=== PATIENT | male | born 1985 | race Caucasian/White ===

== ENCOUNTER → 2016-11-20 | Outpatient (CLI) | payer OTHER ==
--- NOTE | 2016-11-20 18:52 | CONS ---
DATE: 11/20/2016 CONSULTATION/NEW PATIENT EVALUATION HISTORY OF PRESENT ILLNESS/SLEEP-WAKE EVALUATION: A 31-year-old gentleman who has been evaluated in the sleep center for significant excessive daytime sleepiness. SLEEP SCHEDULE: Patient's usual sleep schedule from midnight until 7:00 a.m., on weekends from midnight until 7:30 a.m. FALLING ASLEEP: No problem with falling asleep at all. No TV in bedroom. DURING SLEEP: He usually sleeps on the side position. Without history of significant snoring. No history of hypnagogic hallucinations, cataplexy or sleep paralysis. Sometimes positive episodes of jerking movements. DURING THE DAY/WAKE STATE: During the day, patient sometimes feels extremely sleepy. Shoup Sleepiness Scale is significantly increased to 15. Sometimes he has episodes of sleepiness which he has difficulties to tolerate and may fall asleep in any situation. Shoup Sleepiness Scale is increased to 15. PAST MEDICAL HISTORY: Basically negative. PAST SURGICAL HISTORY: Surgery on right femur, krys insertion for fracture in 2001. MEDICATIONS: None. SOCIAL HISTORY: Negative for smoking or using alcohol. REVIEW OF SYSTEMS: Sleepiness during the day. FAMILY HISTORY: Breast cancer. PHYSICAL EXAMINATION: GENERAL: gentleman without any distress. VITAL SIGNS: BP 115/62, HR 76, RR 16. Height 6 feet 1-1/2 inches, weight 238, BMI 30.9. Neck 17 inches in circumference. Temperature 97.7. HEENT: PERRLA, EOMI. Evaluation of oropharynx showed tongue protrudes midline. Position of soft palate close to normal. Slight restriction of nasal breathing. NECK: Supple. No JVD. Thyroid is not palpable. LUNGS: Clear to percussion and to auscultation. Good air exchange. No wheezing or rhonchi. HEART: S1, S2 regular. No murmurs, gallops or rubs. ABDOMEN: Soft and nontender, slightly obese. Bowel sounds are present. No organomegaly appreciated. EXTREMITIES: No clubbing or cyanosis. HOST COORDINATOR: Awake, alert, and oriented x3. Cranial nerves 2 to 7 intact. There is no fasciculation or atrophy noted. No focal deficits observed. IMPRESSION: 1. Significant excessive daytime sleepiness. Shoup Sleepiness Scale increased to 15, but very easily could fall asleep anytime. Some restriction of sleep schedule. Differential diagnoses include hypersomnia. 2. Rule out obstructive sleep apnea. 3. Obesity. 4. Status post right femur fracture in 2001. 5. History of some jerking movements during sleep. Differential diagnoses include periodic limb movements. PLAN: 1. Increase time in bed to 7-1/2 to 8 hours every night for 6 weeks. 2. If patient continues to feel sleepy during the day, will proceed with polysomnogram for evaluation of the patient's breathing during sleep. If it is negative, will follow up with multiple sleep latency tests for objective evaluation of his sleepiness during the day. 3. No driving if feeling any sleepiness. 4. Losing weight. Thank you very much for referring this patient for consultation. Sincerely, Neymar Leon MD, PhD, FAASM. Diplomat of [employer] [place] [employer], Sleep Medicine Board by [employer] [place] [employer] Senior [employer] of [facility] [place]
== END | disposition home or self-care (01) ==
CPT/HCPCS: 99211

== ENCOUNTER → 2017-04-28 | Outpatient (CLI) | payer BC | END | disposition home or self-care (01) | LOC: LABWHC1 11:18 | PROVIDERS: ATTEND Internal Medicine Cardiovascular Disease | DX: R07.9 Chest pain, unspecified (principal); R06.02 Shortness of breath | CPT/HCPCS: 36415; 85379 ==

== ENCOUNTER 2017-04-29 12:19 | Inpatient (IN) | payer BC ==
--- NOTE | 2017-04-29 13:40 | ED ---
General Adult HPI - General Chief complaint: Allergic Reaction Stated complaint: Numb hands, swelling Time Seen by Provider: 04/29/17 12:30 Source: patient, RN notes reviewed Mode of arrival: ambulatory Limitations: no limitations - History of Present Illness Initial comments: This is a 31-year-old male who presents emergency Department complaining of bilateral hand pain and hand swelling. Patient also complains of facial numbness around his lips he states this morning he was drooling out of the right side of his mouth. Patient states this all started at about 5:45 his morning he woke up with severe hand pain bilaterally. Patient states she has not done any recent physical activity where he might hurt his hand. Patient states he can't even pinch anything to pick it up. Patient states both hands are equally sore and now his feet are starting to ache him a little as well as his knees. Patient denies any fever chills per patient denies any exposure to ticks. Patient states he was at an ER on Thursday because he was having chest pain or difficulty breathing but those symptoms have since resolved and he is not taking any new medicines. Patient denies any headache. Patient denies any lightheadedness dizziness. Patient denies any abdominal pain patient denies nausea vomiting or diarrhea. Patient states his hands are so swollen as well he can get his ring off. Patient states one of the problems with getting his ring off is that he can't apply the pressure with one hand because his fingers aren't strong enough. - Related Data Home Medications Medication Instructions Recorded Confirmed Aspirin 650 mg PO ONCE PRN 04/29/17 04/29/17 Cetirizine HCl [Zyrtec] 10 mg PO DAILY 04/29/17 04/29/17 diphenhydrAMINE HCL [Benadryl] 50 mg PO ONCE PRN 04/29/17 04/29/17 Allergies Allergy/AdvReac Type Severity Reaction Status Date / Time warfarin [From Coumadin] Allergy Unknown Verified 04/29/17 13:16 Childhood Review of Systems ROS Statement: Those systems with pertinent positive or pertinent negative responses have been documented in the HPI. ROS Other: All systems not noted in ROS Statement are negative. Past Medical History Past Medical History: No Reported History History of Any Multi-Drug Resistant Organisms: None Reported Additional Past Surgical History / Comment(s): r femur Past Psychological History: No Psychological Hx Reported Smoking Status: Never smoker Past Alcohol Use History: None Reported Past Drug Use History: None Reported General Exam - General Exam Comments Initial Comments: GENERAL: Patient is well-developed and well-nourished. Patient is nontoxic and well- hydrated and is in mild distress. ENT: Neck is soft and supple. No significant lymphadenopathy is noted. Oropharynx is clear. Moist mucous membranes. Neck has full range of motion without eliciting any pain. EYES: The sclera were anicteric and conjunctiva were pink and moist. Extraocular movements were intact and pupils were equal round and reactive to light. Eyelids were unremarkable. PULMONARY: Unlabored respirations. Good breath sounds bilaterally. No audible rales rhonchi or wheezing was noted. CARDIOVASCULAR: There is a regular rate and rhythm without any murmurs gallops or rubs. ABDOMEN: Soft and nontender with normal bowel sounds. SKIN: Skin is clear with no lesions or rashes and otherwise unremarkable. NEUROLOGIC: Patient is alert and oriented x3. Cranial nerves II through XII are grossly intact. Motor and sensory are also intact. Normal speech, volume and content. Symmetrical smile. I do not appreciate any objective findings of numbness but he states that his face is tingly but not numb. MUSCULOSKELETAL: She has significantly weak technical solutions engineer bilaterally. Patient's hand appear to be a little swollen his ring is unable to be removed. All other joints have full range of motion. LYMPHATICS: No significant lymphadenopathy is noted PSYCHIATRIC: Normal psychiatric evaluation. Normal interpersonal interactions appears functionally intact in deals appropriately with others. No signs of depression. No signs of anxiety. Limitations: no limitations Course Vital Signs 04/29/17 04/29/17 12:29 15:13 Temperature 97.8 F Pulse Rate 86 87 Respiratory 18 18 Rate Blood Pressure 137/79 139/75 O2 Sat by Pulse 95 97 Oximetry Medical Decision Making - Medical Decision Making I reviewed the patient's workup from [facility]. Patient's symptoms seemed to progress while in the hospital. Patient started getting small bumps on the dorsal aspect of the fingers which were also a little bit tender. He also noted that swallowing started to hurt though he could do it it was painful to do. - Lab Data Result diagrams: 04/29/17 13:55 04/29/17 13:55 Lab Results 04/29/17 04/29/17 Range/Units 13:55 13:55 WBC 10.8 H (3.8-10.6) k/uL RBC 5.33 (4.30-5.90) m/uL Hgb 15.8 (13.0-17.5) gm/dL Hct 47.2 (39.0-53.0) % MCV 88.6 (80.0-100.0) fL MCH 29.7 (25.0-35.0) pg MCHC 33.5 (31.0-37.0) g/dL RDW 13.6 (11.5-15.5) % Plt Count 250 (150-450) k/uL Neutrophils % 66 % Lymphocytes % 22 % Monocytes % 6 % Eosinophils % 5 % Basophils % 1 % Neutrophils # 7.1 (1.3-7.7) k/uL Lymphocytes # 2.4 (1.0-4.8) k/uL Monocytes # 0.6 (0-1.0) k/uL Eosinophils # 0.5 (0-0.7) k/uL Basophils # 0.1 (0-0.2) k/uL Sodium 141 (137-145) mmol/L Potassium 4.0 (3.5-5.1) mmol/L Chloride 105 (98-107) mmol/L Carbon Dioxide 24 (22-30) mmol/L Anion Gap 12 mmol/L BUN 26 H (9-20) mg/dL Creatinine 1.00 (0.66-1.25) mg/dL Est GFR (MDRD) Af Amer >60 (>60 ml/min/1.73 sqM) Est GFR (MDRD) Non-Af >60 (>60 ml/min/1.73 sqM) Glucose 83 (74-99) mg/dL Calcium 9.3 (8.4-10.2) mg/dL Magnesium 2.1 (1.6-2.3) mg/dL Total Bilirubin 0.6 (0.2-1.3) mg/dL AST 33 (17-59) U/L ALT 60 (21-72) U/L Alkaline Phosphatase 78 (38-126) U/L C-Reactive Protein 16.2 H (<10.0) mg/L Total Protein 7.0 (6.3-8.2) g/dL Albumin 4.3 (3.5-5.0) g/dL Rheumatoid Factor <9 (<12) IU/mL Disposition Clinical Impression: Inflammatory arthropathy, TIA (transient ischemic attack) Disposition: ADMITTED IP TO THIS HOSP Referrals: Mary Martinez MD [Primary Care Provider] - 1-2 days Time of Disposition: 15:42
--- NOTE | 2017-04-29 14:14 | CT ---
EXAMINATION TYPE: CT brain wo con DATE OF EXAM: 04/29/2017 COMPARISON: NONE HISTORY: Bilateral hand numbness and swelling, Rt facial droop CT DLP: 1135 mGycm. Automated Exposure Control for Dose Reduction was Utilized. TECHNIQUE: CT scan of the head is performed without contrast. FINDINGS: There is no acute intracranial hemorrhage, mass effect, or midline shift identified. The ventricles and sulci are within normal limits in size. There is near complete opacification of bilat eral ethmoid and left frontal sinus. There is moderate dependent opacification right frontal sinus an d left sphenoid sinus. There is moderate mucosal thickening right sphenoid sinus. There is mild to mo derate mucosal thickening visualized portion of bilateral maxillary sinuses IMPRESSION: No acute intracranial hemorrhage or midline shift is seen. Acute on chronic paranasal pa nsinusitis suspected. Clinical correlation advised.
[2017-04-29 14:22] LABS: Basophils # (A) 0.1 k/uL (0-0.2); Basophils % (A) 1 %; CH 30.7; CHCM 34.8; Eosinophils # (A) 0.5 k/uL (0-0.7); Eosinophils % (A) 5 %; HCT 47.2 % (39.0-53.0); HDW 2.71; HGB 15.8 gm/dL (13.0-17.5); Luc % (Auto) 1; Lymphocytes # (A) 2.4 k/uL (1.0-4.8); Lymphocytes % (A) 22 %; MCH 29.7 pg (25.0-35.0); MCHC 33.5 g/dL (31.0-37.0); MCV 88.6 fL (80.0-100.0); Mean Platelet Volume 9.3; Monocytes # (A) 0.6 k/uL (0-1.0); Monocytes % (A) 6 %; Neutrophils # (A) 7.1 k/uL (1.3-7.7); Neutrophils % (A) 66 %; RBC 5.33 m/uL (4.30-5.90); RDW 13.6 % (11.5-15.5); WBC 10.8 k/uL (3.8-10.6)
[2017-04-29 14:32] LABS: Anion Gap 12 mmol/L; C Reactive Protein 16.2 mg/L (<10.0); Calcium 9.3 mg/dL (8.4-10.2); Carbon Dioxide 24 mmol/L (22-30); Chloride 105 mmol/L (98-107); Glucose 83 mg/dL (74-99); Non-African American GFR(MDRD) >60 (>60 ml/min/1.73 sqM); Sodium 141 mmol/L (137-145); Total Bilirubin 0.6 mg/dL (0.2-1.3)
[2017-04-29 14:33] LABS: Rheumatoid Factor, Qnt <9 IU/mL (<12)
[2017-04-29 14:43] LABS: Blood Urea Nitrogen 26 mg/dL (9-20); Magnesium 2.1 mg/dL (1.6-2.3)
[2017-04-29 14:44] LABS: ALT 60 U/L (21-72); AST 33 U/L (17-59); Alkaline Phosphatase 78 U/L (38-126)
[2017-04-29 16:24] LABS: Creatine Kinase 84 U/L (55-170)
--- NOTE | 2017-04-29 16:24 | US ---
EXAMINATION TYPE: US carotid duplex BILAT DATE OF EXAM: 04/29/2017 COMPARISON: NONE CLINICAL HISTORY: Stenosis. Numbness and edema bilateral hands. Dizziness. Right facial droop EXAM MEASUREMENTS: RIGHT: Peak Systolic Velocity (PSV) cm/sec ----- Right CCA: 109.7 ----- Right ICA: 95.1 ----- Right ECA: 111.3 ICA/CCA ratio: 0.9 RIGHT: End Diastole cm/sec ----- Right CCA: 19.2 ----- Right ICA: 22.5 ----- Right ECA: 7.9 LEFT: Peak Systolic Velocity (PSV) cm/sec ----- Left CCA: 101.6 ----- Left ICA: 77.5 ----- Left ECA: 108.1 ICA/CCA ratio: 0.8 LEFT: End Diastole cm/sec ----- Left CCA: 20.8 ----- Left ICA: 32.2 ----- Left ECA: 12.8 VERTEBRALS (direction of flow): Right Vertebral: Antegrade Left Vertebral: Antegrade Minimal plaque noted bilateral bifurcations. No increased velocities. No evidence of significant sten osis IMPRESSION: 1. Atheromatous plaquing without significant flow-limiting stenosis. Criteria for Assigning % of Stenosis / Diameter reduction (Estimation based on the indirect measurements of the internal carotid artery velocities (ICA PSV). 1. Normal (no stenosis)=ICA PSV < 125 cm/s: ratio < 2.0: ICA EDV<40 cm/s. 2. Less than 50% stenosis=ICA PSV < 125 cm/s: ratio < 2.0: ICA EDV<40 cm/s. 3. 50 to 69% stenosis=ICA PSV of 125 to 230 cm/s: ration 2.0 ? 4.0: ICA EDV 40-100 cm/s. 4. Greater than 70% stenosis to near occlusion= ICA PSV > 230 cm/s: ratio > 4.0: ICA EDV > 100 cm/s. 5. Near occlusion= ICA PSV velocities may be low or undetectable: variable ratio and ICA EDV. 6. Total occlusion=unable to detect flow.
[2017-04-29 16:36] LABS: Creatine Kinase MB 1.3 ng/mL (0.0-2.4); Troponin I <0.012 ng/mL (0.000-0.034)
[2017-04-29] MEDS ORDERED: KETOROLAC 30 MG/ML 1 ML VIAL IVP STA (17:12)
[2017-04-29] MEDS ORDERED: MORPHINE SULFATE 2 MG/ML SYRINGE IVP PRN (17:12)
[2017-04-29] MEDS ORDERED: ACETAMINOPHEN TAB 325 MG TAB PO STA (17:29)
[2017-04-29 18:31] VITALS: BMI 30.2
[2017-04-29] MEDS ORDERED: methylPREDNISolone SOD SUCCI 125 MG/2 ML VIAL IV STA (18:58)
[2017-04-29] MEDS ORDERED: traMADol 50 MG TAB PO PRN (18:59)
[2017-04-29] MEDS ORDERED: DOCUSATE 100 MG CAP PO PRN (22:02)
[2017-04-29] MEDS: methylPREDNISolone SOD SUCCI 125 MG/2 ML VIAL IV SCH (23:28)
[2017-04-30] MEDS: methylPREDNISolone SOD SUCCI 125 MG/2 ML VIAL IV SCH ×2 (05:06→11:24)
[2017-04-30 07:35] LABS: Cholesterol 181 mg/dL (<200); HDL Cholesterol 60 mg/dL (40-60); Triglycerides 75 mg/dL (<150)
--- NOTE | 2017-04-30 11:00 | CONS ---
DATE OF CONSULTATION: 04/29/2017 CHIEF COMPLAINT: Numbness. HISTORY OF PRESENT ILLNESS: The patient is a pleasant 31-year-old male who is being evaluated by the Neurology Service today on 04/29/2017 per the request of Dr. Valle for some facial numbness. The patient states that he woke up this morning and felt numbness around his lips along with some swelling. He also noticed significant swelling in his hands. The swelling in the hands was kind of painful to the point where he could not make a fist. He denies any previous symptoms similar to this. He denies starting any new medications, except some [id number] Benadryl. He states that he has recently been having seasonal allergies and he has been taking Benadryl and Zyrtec. He does report having occasional joint pain. A CT scan of the brain was done in the emergency room which was normal. A carotid Doppler was done, which showed no hemodynamically significant stenosis. His comprehensive metabolic profile was normal and his CBC was normal except for minimal leukocytosis at 10.8. His C-reactive protein was slightly elevated at 16.2. At the time of my evaluation, the patient is sitting up in his bed and appears to be in no acute distress. He denies any changes in his symptoms involving his lips and his hands since his admission. He does inform me that he did have a recent trip to the Emergency Room a few days ago because he was having chest pains that radiated into his left arm. He states he had a cardiac work-up in the emergency room and this was negative. PAST MEDICAL HISTORY: Seasonal allergies and history of orthopedic surgery. SOCIAL HISTORY: He denies any tobacco, alcohol or drug use. FAMILY HISTORY: Noncontributory. HOME MEDICATIONS: Reviewed in the chart. ALLERGIES: COUMADIN. REVIEW OF SYSTEMS: As mentioned above and otherwise negative. PHYSICAL EXAM: Vital signs show a temperature of 99.9, pulse 85, respirations 18, blood pressure 133/69. GENERAL APPEARANCE: The patient is a well-developed male who appears to be in no acute distress. HEENT: Normocephalic, atraumatic, no facial asymmetry is seen. Extraocular muscles are intact. Neck is supple with no masses felt. CARDIOVASCULAR: Regular rate and rhythm. ABDOMEN: Nontender, nondistended. Extremities showed nonpitting edema in both hands. No clubbing was seen. NEUROLOGICAL EXAM: The patient is alert, aware, and oriented x3. Speech and language are normal. 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 Sensory exam was normal to light touch in all 4 extremities. No pronator drift is seen. No facial asymmetry or sensory deficit is noticed on cranial nerve testing although he does feel that his lips are numb involving the right and the left side. IMPRESSION: 1. Numbness. 2. Extremity swelling. 3. 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 RECOMMENDATION: The patient's numbness is involving his lips and he does have some swelling there as well. Symptoms are not consistent with any ischemic etiology. 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 I do recommend a rheumatological work-up. He could also be having medication adverse effect, which should be considered as well. No further inpatient neurological work-up is needed at this time. I reviewed with the patient the results of his CT scan of the brain and a carotid Doppler. I will continue to follow with you as needed. Thank you for allowing me to participate in the care of your patient. If you have any questions, please feel free to contact me.
[2017-04-30 13:22] VITALS: BP 120/67; PULSE 92; RESP 18; TEMP 97.8
--- NOTE | 2017-04-30 19:09 | HP ---
H&P AND DISCHARGE SUMMARY DATE OF ADMISSION: Patient is a very pleasant 31-year-old gentleman without any significant major medical problems and without any significant history of premature coronary artery disease in the family. He came in with complaints of facial swelling and facial numbness ( ) bilateral hand swelling and throat swelling; mostly looks like an allergic reaction, but unfortunately patient is not sure why. Because of the facial numbness, Neurology was consulted, and they do not believe patient has an ischemic event. Patient clearly does not have any ischemic event. CT scan of the head was negative and carotid Doppler was also negative. Patient does not have any fevers. Patient on Thursday was having chest pain, pressure-like sensation, ( ) some shortness of breath which started about an hour after eating. Patient's symptoms ( ) would be mostly gastroesophageal reflux disease, although patient ( ) troponin and EKG, was subsequently discharged home with Prilosec, although patient did not take Prilosec. Patient did take aspirin and Benadryl that night. At this point of time patient does not have any chest pain. Does have a scheduled stress test, the possibility of that even being acute coronary event is extremely low, although gastroesophageal reflux cannot be ruled out, the relevance of which patient will be discharged on Medrol Dosepak, which can precipitate his acid reflux. If that happens, patient was asked to take Prilosec. Otherwise, patient can withhold the Prilosec. Patient does have significant multiple seasonal allergies. Patient ( ) improved symptoms of his swelling of the face and bilateral hands along with improvement in his tingling and numbness after systemic steroids. Patient has elevated C-reactive protein, which is a nonspecific test; does not mean much. Patient has an outpatient stress test that was scheduled. Patient's ( ) appears to be most secondary to aspirin, which I asked him to discontinue which started after taking aspirin, although Benadryl rarely causes any kind of allergy reaction. Patient can continue that medication if needed on an as-needed basis. Patient does take Zyrtec for his allergies. REVIEW OF SYSTEMS: GENERAL: As described in HPI. CONSTITUTIONAL: No fever, no malaise, no fatigue. HEENT: No recent visual problems or hearing problems. Denied any sore throat. CARDIOVASCULAR: No chest pain, orthopnea, PND, no palpitations, no syncope. PULMONARY: No shortness of breath, no cough, no hemoptysis. GASTROINTESTINAL: No diarrhea, no nausea, no vomiting, no abdominal pain. Normoactive bowel sounds. NEUROLOGICAL: As described in HPI. Patient does not have any other weakness. HEMATOLOGICAL: Denies any bleeding or petechiae. GENITOURINARY: Denies any burning micturition, frequency, or urgency. MUSCULOSKELETAL/RHEUMATOLOGICAL: Denies any joint pain, swelling, or any muscle pain. ENDOCRINE: Denies any polyuria or polydipsia. The rest of the 14 point review of systems is negative. PAST MEDICAL HISTORY: 1. Seasonal allergies. 2. Orthopedic surgery in the past. 3. Recent chest pain history as mentioned above. SOCIAL HISTORY: Denied any smoking, alcohol abuse or any drug abuse. FAMILY HISTORY: Denied any premature heart disease. Home medications include: 1. Aspirin. 2. Benadryl as needed. 3. Prilosec. ALLERGIES: COUMADIN. PHYSICAL EXAMINATION: VITAL SIGNS: Temperature 97.8, pulse of 92, respiratory rate of 18, blood pressure 120/67. Saturating at 93% on room air. GENERAL: The patient is alert and oriented x3, not in any acute distress. Well developed, well nourished. HEENT: Pupils are round and equally reacting to light. EOMI. No scleral icterus. No conjunctival pallor. Normocephalic, atraumatic. No pharyngeal erythema. No thyromegaly. CARDIOVASCULAR: S1 and S2 present. No murmurs, rubs, or gallops. PULMONARY: Chest is clear to auscultation, no wheezing or crackles. ABDOMEN: Soft, nontender, nondistended, normoactive bowel sounds. No palpable organomegaly. MUSCULOSKELETAL: No joint swelling or deformity. EXTREMITIES: No cyanosis, clubbing, or pedal edema. NEUROLOGICAL: Gross neurological examination did not reveal any focal deficits. SKIN: No rashes. Patient has undergone Lyme disease serology, which I do not believe is necessary. Patient does not have any symptomatology consistent with Lyme disease, although Lyme disease serology is negative at this time. ASSESSMENT AND PLAN: 1. Allergic reaction and angioedema, improved at this point of time. Patient will be discharged with Medrol Dosepak and avoid aspirin. Appears to have allergic reaction to aspirin. 2. Numbness secondary to swelling, resolved at this point of time. 3. Possible gastroesophageal reflux disease. 4. Multiple seasonal allergies. 5. Leukocytosis due to systemic steroids he received. 6. Patient does not have any symptoms consistent with Lyme disease. Lyme disease serology is negative. Patient will be discharged with Medrol Dosepak. Avoid aspirin. Can continue Zyrtec (cetirizine and diphenhydramine) at this point of time if needed. Patient can only take one of those medications, as both of them are anticholinergic medications. Patient will have an outpatient stress test. Patient will be discharged on Zyrtec. Activity as tolerated. Follow with Dr. Mary Martinez in 3 to 7 days.
[2017-05-02 14:10] LABS: Lyme Specimen Source Serum
== END 2017-04-30 13:54 | disposition home or self-care (01) | DRG 916 ==
LOC: EC 12:19 → 6SEL 15:46
PROVIDERS: ADMIT Hospitalist; ATTEND Hospitalist
DX: T78.3XXA Angioneurotic edema, initial encounter (principal); D72.829 Elevated white blood cell count, unspecified; T39.015A Adverse effect of aspirin, initial encounter; T38.0X5A Adverse effect of glucocorticoids and synthetic analogues, initial encounter; K21.9 Gastro-esophageal reflux disease without esophagitis; J30.2 Other seasonal allergic rhinitis; Z79.82 Long term (current) use of aspirin; Z88.8 Allergy status to other drugs, medicaments and biological substances; Y92.009 Unspecified place in unspecified non-institutional (private) residence as the place of occurrence of the external cause
CPT/HCPCS: 36415; 70450; 80053; 80061; 82550; 82553; 83735; 84484; 85025; 85652; 86140; 86431; 86618; 87476; 93880; 96374; 99285

== ENCOUNTER → 2017-05-28 | Outpatient (CLI) | payer BC ==
[2017-05-28 10:52] LABS: ALT 47 U/L (21-72); AST 30 U/L (17-59); Cholesterol 187 mg/dL (<200); HDL Cholesterol 43 mg/dL (40-60); Triglycerides 168 mg/dL (<150)
== END | disposition home or self-care (01) ==
LOC: LABWHC1 10:20
PROVIDERS: ATTEND Internal Medicine Cardiovascular Disease
DX: E78.1 Pure hyperglyceridemia (principal)
CPT/HCPCS: 36415; 80061; 84450; 84460